=== PATIENT | female | born 2005 | race Caucasian/White ===

== ENCOUNTER 2024-06-24 22:54 | Emergency (ER) | payer OTHER ==
[2024-06-24 23:00] VITALS: BP 107/72; PULSE 81; RESP 16; TEMP 98.4; BMI 21.4
[2024-06-25 00:03] LABS: BASO % 0.5 % (0-2.0); EOS % 1.5 % (0-4.5); HEMATOCRIT 41.6 % (32.4-45.2); LYMPH % 29.1 % (8-40); MCH 29.8 pg (25.7-33.7); MCHC 33.6 g/dl (32.0-36.0); MEAN CELL VOLUME 88.5 fl (80-96); MEAN PLT VOLUME 7.5 fl (7.5-11.1); MONO % 7.8 % (3.8-10.2); NEUT % 61.1 % (42.8-82.8); PLATELET COUNT 316 10^3/uL (134-434); RDW 13.5 % (11.6-15.6); WHITE BLOOD COUNT 9.3 K/mm3 (4.0-10.0)
[2024-06-25 00:27] LABS: ALBUMIN 4.2 g/dl (3.4-5.0); BLOOD UREA NITROGEN 16.6 mg/dL (7-18); CALCIUM 9.6 mg/dL (8.5-10.1)
[2024-06-25 00:30] LABS: CREATININE 0.9 mg/dL (0.55-1.3)
[2024-06-25 00:32] LABS: TOT PROT 7.3 g/dl (6.4-8.2)
[2024-06-25 00:52] LABS: EPI CELLS >36 /uL (0-25.1); HYALINE CASTS 1 /uL (0-3.1); PH,URINE 6.5 (5.0-8.0); URINE APPEARANCE CLOUDY; URINE BACTERIA >9,000 /uL (0-1359); URINE BILIRUBIN NEGATIVE (NEGATIVE); URINE COLOR YELLOW; URINE GLUCOSE (UA) NEGATIVE (NEGATIVE); URINE KETONE NEGATIVE (NEGATIVE); URINE LEUK ESTERASE 1+ (NEGATIVE); URINE NITRITE NEGATIVE (NEGATIVE); URINE PROTEIN NEGATIVE (NEGATIVE); URINE RBC 4 /uL (0-23.9); URINE WBC 66 /uL (0-25.8)
[2024-06-25 01:19] LABS: HIV INTERPRETATION NEGATIVE (NEGATIVE)
[2024-06-25 01:39] LABS: EPI CELLS 36 /uL (0-25.1); HYALINE CASTS 41 /uL (0-3.1); URINE APPEARANCE CLOUDY; URINE BACTERIA >9,000 /uL (0-1359); URINE BILIRUBIN NEGATIVE (NEGATIVE); URINE COLOR YELLOW; URINE GLUCOSE (UA) NEGATIVE (NEGATIVE); URINE KETONE NEGATIVE (NEGATIVE); URINE LEUK ESTERASE 3+ (NEGATIVE); URINE NITRITE POSITIVE (NEGATIVE); URINE PROTEIN NEGATIVE (NEGATIVE); URINE RBC 9 /uL (0-23.9); URINE WBC 776 /uL (0-25.8)
[2024-06-25] MEDS ORDERED: NITROFURANTOIN MACROCRYSTAL 50 MG CAPSULE (FP) ONE (03:04)
[2024-06-25] MEDS: NITROFURANTOIN MONOHYD/M-CRYST 100 MG CAPSULE PO ONE (03:08)
[2024-06-25] MEDS ORDERED: NITROFURANTOIN MONOHYD/M-CRYST 100 MG CAPSULE PO SCH (10:00)
== END 2024-06-25 03:09 | disposition home or self-care (01) ==
LOC: JER 22:54
DX: R07.89 Other chest pain (principal); N39.0 Urinary tract infection, site not specified; R00.2 Palpitations; R06.02 Shortness of breath; R20.2 Paresthesia of skin
CPT/HCPCS: 36415; 80053; 81003; 84484; 84703; 85025; 86803; 87389; 93005; 93010; 99284-25